=== PATIENT | male | born 1940 | race Caucasian/White ===

== ENCOUNTER 2017-05-10 20:43 | Inpatient (IN) | payer OTHER ==
[~2017-05-10] VITALS: Ht 167.6 cm; Wt 74.8 kg
[~2017-05-10 20:43] MED LIST: ARTIFICIAL TEA1 EACH; ASPIRIN PO; B Complex-Vitamin PO; CALCIUM CITRAT250 MG PO; CARVEDILOL3.125 MG PO; CARVEDILOL6.25 MG PO; CLONAZEPAM 0.50.5 M1 PO; CLONAZEPAM PO; COUMADIN 2 MG TA2 M1 PO; Calcium Citrate PO; FISH OIL 1,2001 EAC3 PO; FOLIC ACID1 MG PO; FOSAMAX 70 MG T70 MG PO; JANUVIA100 MG PO; KLOR-CON 1010 MEQ PO; LANOXIN 0.120.125 M1 PO; LASIX 20 MG TAB20 MG PO; LISINOPRIL2.5 MG PO; LOPID600 MG PO; NICOTINE TRANSD21 M1 TD; PLAVIX 75 MG TA75 MG PO; PRADAXA150 MG; PRADAXA150 MG PO; PRAVACHOL 20 MG20 M1 PO; PRED FORTE 1% EY5 M1; PROLENSA1.6 ML; VICODIN 5-5001 EACH PO; VITAMIN D1000 UNI1 PO; VITAMIN D400 UNI1 PO
[2017-05-10 20:56] VITALS: BP 159/92
[2017-05-10 21:21] LABS: HEMOGLOBIN 14.9 gm/dL (14.0-18.0); MCH 34.2 pg (26.0-34.0); MCHC 34.8 g/dL (28.0-37.0); MCV 98.2 fL (80.0-100.0); NUCLEATED RBCS 0 /100WBC; PLATELET COUNT* 140 thou/uL (150-400); RBC 4.38 mil/uL (4.50-6.00); RDW-CV 12.8 % (10.5-14.5); WBC 14.8 thou/uL (4.0-11.0)
[2017-05-10 21:28] LABS: CALCIUM 8.8 mg/dL (8.5-10.1); CREATININE 1.3 mg/dL (0.6-1.3); POTASSIUM 4.5 mmol/L (3.5-5.1)
[2017-05-10 21:31] LABS: APTT 37.1 Seconds (25.0-31.3); INR 1.2
[2017-05-10 21:32] LABS: ALBUMIN 3.8 g/dL (3.4-5.0); TOTAL BILIRUBIN 1.1 mg/dL (<0.1-1.0); TOTAL PROTEIN 7.4 g/dL (6.4-8.2)
[2017-05-10 22:52] LABS: ABSOLUTE BASOPHILS 0.1 thou/uL (0.0-0.2); ABSOLUTE LYMPHOCYTES 1.5 thou/uL (0.8-5.3); ABSOLUTE MONOCYTES 0.1 thou/uL (0.0-1.2)
[2017-05-10 22:53] LABS: PLATELET ESTIMATE DECREASED
[2017-05-10] MEDS ORDERED: NORCO 5-325 TA1 EACH PO (22:53)
[2017-05-10] MEDS ORDERED: AUGMENTIN 875-1 EACH PO (22:53)
[2017-05-10 23:58] VITALS: BP 117/65
--- NOTE | 2017-05-11 00:27 | NUR ---
PT ARRIVED AT 0000 ADMITTED TO ROOM 104, PT TRANSFERRED TO HOSPITAL BED BY SLIDING OVER WITH ASSISTANCE, PT IS DROWSY, UNABLE TO STAY AWAKE DURING ASSESSMENT, UNABLE TO STAY AWAKE DURING QUESTIONING, VS OBTAINED, ASSESSMENT COMPLETE, PT RESTING IN BED WITH EYES CLOSED IN STABLE CONDITION, SCDS ON
--- NOTE | 2017-05-11 04:59 | NUR ---
PT RESTS QUIETLY IN BED THROUGHOUT THE NIGHT, STANDS UP AT BEDSIDE THIS AM WITH ASSIST TO VOID, VOIDS 200 ML DARK YELLOW URINE, PT APPEARS UNSTEADY BUT DENIES DIZZINESS OR WEAKNESS, PT DENIES HEADACHE, PT IS ORIENTED TO PERSON, PLACE, AND SITUATION, PT IS ASKING ABOUT GOING HOME THIS MORNING, PT ASSISTED BACK TO BED WHERE HE IS RESTING WITH EYES CLOSED, PENDING NEURO CONSULT THIS AM TO BE CALLED ROUTINE VISIT BY THIS NURSE
[2017-05-11 08:25] VITALS: BP 118/64
[2017-05-11 10:14] LABS: HEMATOCRIT 43.4 % (42.0-52.0); HEMOGLOBIN 14.6 gm/dL (14.0-18.0); MCHC 33.7 g/dL (28.0-37.0); MPV 10.6 fl. (7.2-11.1); RBC 4.3 mil/uL (4.50-6.00); WBC 14.4 thou/uL (4.0-11.0)
[2017-05-11 16:09] VITALS: BP 118/64
--- NOTE | 2017-05-11 16:19 | NUR ---
PATIENT DISCHARGING AT THIS TIME. IV'S REMOVED. PATIENT VERBALIZES UNDERSTANDING OF DC INSTRUCTIONS. DISCHARGED WITH SPOUSE.
--- NOTE | 2017-05-14 07:27 | CON ---
[address] [address] CONSULTATION Name: REY ALEXIS Room: [address] IN ..#: [id number] Admission: 05/10/17 Attend Phys: Lance Kwan, Discharge: 05/11/17 Date of : 42 Report #: [id number] THIS REPORT FOR: //name// CC: Noemi Kwan DATE OF SERVICE: 05/11/2017 HISTORY OF PRESENT ILLNESS: This is a 77-year-old male patient who was evaluated by me for headache. Headache is on both sides, but predominantly on the right side. It was acute in onset. It is behind his eyes. It was severe. In fact, his headache is resolved this morning. He did not have any decreased vision. He had headache like this before, but this was worse than before. So, the best I can tell, he had headaches behind his eyes like this before. REVIEW OF SYSTEMS: Indicate he has multiple problems. He has a history of atrial fibrillation. He is on anticoagulation. He had a broken leg in the past. He had a stent put in the past. He has a lens transplant. He has a history of hypertension and hyperlipidemia. He denies any stroke in the past. He does not think he has been diagnosed as migraine in the past. I carried out the 14-point review of system and that was his relevant 14-point review of system. PAST MEDICAL HISTORY: Negative for any stroke. FAMILY HISTORY: Negative for any early age stroke. SOCIAL HISTORY: He does have history of smoking, but not drinking alcohol. PHYSICAL EXAMINATION: Indicate he is alert, responsive, oriented. His speech, concentration, fund of knowledge and memory is at his baseline. Cranial nerve examination 2-12 is unremarkable. I could not have a very good look at the patient's fundus but he says there is no change in his vision. His strength, sensation, reflexes and tones are symmetrical. There is no cerebellar sign. There is no meningeal sign. There is no carotid bruit. There is no thyroid mass. This patient is a well-developed individual who does not have any dysmorphic features of eyes, ears and face. His vision and hearing looks adequate. His pulses are palpable. He has no edema, cyanosis or jaundice. He has a history of atrial fibrillation and he does appear to have a little murmur, which apparently is old. He has no respiratory difficulty or rhonchi on either side. Blood pressure is 118/64, respirations 18, pulse is 84, temperature is 98.4. LABORATORY DATA: His last white count was high for some reason. He did have a CT scan of the head [place] [address] CONSULTATION Name: REY ALEXIS Room: [address] IN ..#: [id number] Admission: 05/10/17 Attend Phys: Lance Kwan, Discharge: 05/11/17 Date of : 42 Report #: [id number] IMPRESSION: This is probably a migraine headache if he had these symptoms before, but the possibility of aneurysm need to be excluded because of the pain behind both eye. He is going for MRI and I will also order an MRA to make sure it is not an aneurysm. I will repeat his CBC, but it does not look like he has any meningitis. He really wants to go home. I talked to him about the CT angiogram versus MRA and he wants to do MRA because it can be done without dye. His white count may be because of what looks like he may have got some steroids at one time. RECOMMENDATIONS: 1. MRI of the brain. 2. MRA of the head and neck. 3. It looks like these symptoms are not new and he had these symptoms for long period of time, but still will be desirable to rule out aneurysms. We talked about doing other testing like but he wants to go home and he says that if his MRI and MRA is okay, he will go home and I will order that stat on him. Thank you very much for this referral. <ELECTRONICALLY SIGNED> By: Omero Gillis MD 05/14/17 0727 [id number] 57Omero Gillis MD /nt
== END 2017-05-11 16:21 | disposition home or self-care (01) | DRG 683 ==
LOC: M.ERS 20:43 → M.TBA-ER 23:29 → M.ORTHSURG 23:29
PROVIDERS: Family Medicine; Psychiatry & Neurology Neuromuscular Medicine; ADMIT Family Medicine
DX: I12.9 Hypertensive chronic kidney disease with stage 1 through stage 4 chronic kidney disease, or unspecified chronic kidney disease (principal); G45.9 Transient cerebral ischemic attack, unspecified; N18.2 Chronic kidney disease, stage 2 (mild); R51 Headache; I10 Essential (primary) hypertension; E78.5 Hyperlipidemia, unspecified; I48.91 Unspecified atrial fibrillation; K21.9 Gastro-esophageal reflux disease without esophagitis; M19.90 Unspecified osteoarthritis, unspecified site; Z96.642 Presence of left artificial hip joint; F17.210 Nicotine dependence, cigarettes, uncomplicated; Z87.828 Personal history of other (healed) physical injury and trauma; Z95.5 Presence of coronary angioplasty implant and graft; Z79.82 Long term (current) use of aspirin; Z79.899 Other long term (current) drug therapy; Z28.21 Immunization not carried out because of patient refusal

== ENCOUNTER → 2018-09-25 | Outpatient (CLI) | payer MEDICARE, BC ==
[~2018-09-25] MED LIST changes: +AUGMENTIN 875-1 EACH PO; +NORCO 5-325 TA1 EACH PO
== END ==
LOC: M.RAD 10:22
DX: M47.816 Spondylosis without myelopathy or radiculopathy, lumbar region (principal); M41.86 Other forms of scoliosis, lumbar region; M25.551 Pain in right hip; M15.0 Primary generalized (osteo)arthritis; I10 Essential (primary) hypertension; J44.9 Chronic obstructive pulmonary disease, unspecified; I25.10 Atherosclerotic heart disease of native coronary artery without angina pectoris; N40.1 Benign prostatic hyperplasia with lower urinary tract symptoms; R39.11 Hesitancy of micturition; I48.2 Chronic atrial fibrillation; Z96.642 Presence of left artificial hip joint